=== PATIENT | female | born 1975 | race Caucasian/White ===

== ENCOUNTER 2023-04-16 19:20 | Emergency (ER) | payer OTHER ==
[2023-04-16 19:36] VITALS: BP 130/84; PULSE 84; RESP 18; TEMP 98.8; BMI 31.4
[2023-04-16] MEDS ORDERED: IBUPROFEN 600 MG TABLET (FP) PO ONE ×2 (20:47→20:57)
[2023-04-16] MEDS ORDERED: predniSONE 20 MG TABLET (UD) PO ONE (20:48)
[2023-04-16] MEDS ORDERED: ALBUTEROL SO4 2.5/IPRATROPIUM 0.5 INH SOL 3 ML VIAL.NEB. NEB ONE (20:57)
[2023-04-16] MEDS ORDERED: predniSONE 20 MG TABLET (UD) ONE (20:57)
[2023-04-16] MEDS: ALBUTEROL SO4 2.5/IPRATROPIUM 0.5 INH SOL 3 ML VIAL.NEB. NEB SCH ×3 (21:05→21:30)
== END 2023-04-16 23:02 | disposition home or self-care (01) ==
LOC: JER 19:20
PROC: 3E0F7GC Introduction of Other Therapeutic Substance into Respiratory Tract, Via Natural or Artificial Opening (ICD-10-PCS; principal; 2023-04-16)
DX: R05.9 Cough, unspecified (principal); M79.10 Myalgia, unspecified site; R51.9 Headache, unspecified; R50.9 Fever, unspecified; J02.9 Acute pharyngitis, unspecified; R06.02 Shortness of breath; J45.901 Unspecified asthma with (acute) exacerbation; Z20.822 Contact with and (suspected) exposure to COVID-19
CPT/HCPCS: 0241U-QW; 99283-25

== ENCOUNTER 2023-10-29 13:32 | Emergency (ER) | payer OTHER ==
[2023-10-29 13:41] VITALS: BP 122/76; PULSE 89; RESP 18; TEMP 97.6; BMI 27.4
[2023-10-29] MEDS ORDERED: ALBUTEROL SO4 2.5/IPRATROPIUM 0.5 INH SOL 3 ML VIAL.NEB. NEB ONE (14:42)
[2023-10-29] MEDS: ALBUTEROL SO4 2.5/IPRATROPIUM 0.5 INH SOL 3 ML VIAL.NEB. NEB ONE (14:53)
== END 2023-10-29 16:19 | disposition home or self-care (01) ==
LOC: JERFT 13:32
PROC: 3E0F7GC Introduction of Other Therapeutic Substance into Respiratory Tract, Via Natural or Artificial Opening (ICD-10-PCS; principal; 2023-10-29)
DX: U07.1 COVID-19 (principal); R51.9 Headache, unspecified; R05.9 Cough, unspecified; M79.10 Myalgia, unspecified site; R06.2 Wheezing; R68.83 Chills (without fever); R06.02 Shortness of breath; T60.2X1A Toxic effect of other insecticides, accidental (unintentional), initial encounter
CPT/HCPCS: 0241U-QW; 71046-TC-FY; 94640; 99284-25